=== PATIENT | male | born 1955 | race Caucasian/White ===

== ENCOUNTER 2019-01-08 08:25 | Inpatient (IN) | payer MEDICARE, OTHER ==
[~2019-01-08] VITALS: Ht 172.7 cm; Wt 96.4 kg
[~2019-01-08 08:25] MED LIST: DILT180C66 PO; FOLI-43 PO; IND25C PO; LISI-600 PO; NOR5T PO; PANT40TA39 PO; THI100T PO; TRAZ-91 PO
--- NOTE | 2019-01-08 08:53 | NUR ---
dr. kaplan at bedside.
[2019-01-08 09:55] LABS: BASOPHILS % (AUTO) 0.7 % (0-1); EOSINOPHILS # (AUTO) 0.1 X10'3 (0-0.9); HEMATOCRIT 47.5 % (42.0-52.0); HEMOGLOBIN 16.5 g/dl (14.0-17.9); LYMPHOCYTES # (AUTO) 1.2 X10'3 (1.1-4.8); LYMPHOCYTES % (AUTO) 19.9 % (21-51); MEAN CORPUSCULAR HEMOGLOBIN 38.2 PG (27.0-31.0); MEAN CORPUSCULAR HGB CONC 34.6 g/dL (33.0-36.5); MEAN CORPUSCULAR VOLUME 110.2 FL (78-98); MEAN PLATELET VOLUME 7.4 FL (7.4-10.4); MONOCYTES # (AUTO) 0.5 X10'3 (0-0.9); MONOCYTES % (AUTO) 8.8 % (2-12); NEUTROPHILS # (AUTO) 4.1 X10'3 (1.8-7.7); NEUTROPHILS % (AUTO) 68.6 % (42-75); PLATELET COUNT 181 X10'3 (140-440); RED BLOOD COUNT 4.31 X10'6 (4.70-6.10); RED CELL DISTRIBUTION WIDTH 15.9 % (11.5-14.5)
[2019-01-08 10:09] LABS: ALANINE AMINOTRANSFERASE 18 U/L (12-78); ALBUMIN 2.6 G/DL (3.4-5.0); ALBUMIN/GLOBULIN RATIO 0.6 (1.1-1.5); ALKALINE PHOSPHATASE 199 IU/L (46-116); ANION GAP 7 (8-16); ASPARTATE AMINO TRANSFERASE 53 U/L (10-37); BLOOD UREA NITROGEN 7 MG/DL (7-18); BUN/CREATININE RATIO 6.9 (5.4-32.0); CALCIUM 8.9 MG/DL (8.5-10.1); CHLORIDE 96 MMOL/L (99-107); CREATININE 1.01 MG/DL (0.60-1.10); GLUCOSE 108 MG/DL (70-104); POTASSIUM 3.5 MMOL/L (3.5-5.1); SODIUM 132 MMOL/L (135-145); TOTAL CARBON DIOXIDE 29.5 MMOL/L (24-32); TOTAL PROTEIN 7.1 G/DL (6.4-8.2); eGFR 74 ML/MIN
[2019-01-08 10:12] LABS: ETHANOL < 0.010 GM/DL (0.0-0.010); TROPONIN I < 0.04 NG/ML (0.0-0.05)
[2019-01-08 10:28] LABS: PARTIAL THROMBOPLASTIN TIME 29 SECONDS (22-32); PROTHROMBIN TIME 10.3 SECONDS (9.0-12.0)
[2019-01-08] MEDS ORDERED: heparin 25,000 UNIT/250ml bag 250 ML IV SCH (10:47)
[2019-01-08] MEDS ORDERED: heparin 10,000 units/1 ML INJ IV PRN (10:50)
[2019-01-08] MEDS ORDERED: heparin 10,000 units/1 ML INJ IV ONE ×2 (10:50→10:55)
[2019-01-08] MEDS ORDERED: iohexol 350MG/ML 100ml bottle IV ONE (11:20)
--- NOTE | 2019-01-08 11:20 | NUR ---
patient refused heparin drip at this time,wanted to speak to Dr. rosaura obrien-.
--- NOTE | 2019-01-08 11:30 | NUR ---
urine sent to the lab.
--- NOTE | 2019-01-08 11:30 | NUR ---
patient to ct.
[2019-01-08 11:55] LABS: URINE AMPHETAMINE SCREEN NEGATIVE (Neg); URINE BARBITUATE SCREEN NEGATIVE (Neg); URINE BENZODIAZEPINES SCREEN NEGATIVE (Neg); URINE CANNABINOID SCREEN POSITIVE (Neg); URINE COCAINE SCREEN NEGATIVE (Neg); URINE METHADONE SCREEN NEGATIVE (Neg); URINE OPIATE SCREEN NEGATIVE (Neg); URINE PHENCYCLIDINE SCREEN NEGATIVE (Neg)
--- NOTE | 2019-01-08 11:58 | NUR ---
Dr. Jolley at bedside.
[2019-01-08 12:20] LABS: CLARITY,URINE CLEAR (Clear); COLOR,URINE YELLOW (Yellow); GLUCOSE, URINE NEGATIVE (Neg); KETONES,URINE NEGATIVE (Neg); LEUKOCYTE ESTERASE ,URINE NEGATIVE (Neg); NITRITES, URINE NEGATIVE (Neg); OCCULT BLOOD,URINE NEGATIVE (Neg); PROTEIN,URINE NEGATIVE (Neg); UROBILINOGEN,URINE 0.2 E.U/dL (0.2-1.0)
[2019-01-08] MEDS ORDERED: ESZO3TAB44 PO (12:38)
[2019-01-08] MEDS ORDERED: IBUP-1986 PO (12:38)
[2019-01-08] MEDS ORDERED: GABA-530 PO (12:38)
[2019-01-08 12:41] LABS: UA COLLECTION TYPE CLN CATCH MIDSTREAM
--- NOTE | 2019-01-08 12:45 | NUR ---
patient still refusing heparin,wanted to go ama,sisters at bedside.Dr. Jolley will speak to patient.
--- NOTE | 2019-01-08 13:04 | NUR ---
PER MARIAA IN SS, PT DOES HAVE A HX OF SUICIDE, SHE WANTED STAFF TO BE AWARE. SHE DOES FEEL HE IS VERY DEPRESSED RIGHT NOW BUT NOT A HARM TO SELF AT MOMENT.
[2019-01-08 13:10] LABS: BILIRUBIN,DIRECT 0.3 MG/DL (0-0.3)
--- NOTE | 2019-01-08 13:16 | NUR ---
patient finally agreed to received heparin treatment for dvt and to be admitted.
[2019-01-08] MEDS ORDERED: NICOTINE PATCH TD (13:34)
[2019-01-08] MEDS ORDERED: magnesium 2GM in 50ml NS 50 ML IV PRN (13:55)
[2019-01-08] MEDS ORDERED: mag hydrox/Alum hydrox/simeth 30ml oral suspension PO PRN (13:55)
[2019-01-08] MEDS ORDERED: acetaminophen 325mg tablet PO PRN ×2 (13:55)
[2019-01-08] MEDS ORDERED: diphenhydrAMINE 50 mg/ml inj IV PRN (13:55)
[2019-01-08] MEDS ORDERED: bisacodyl 10mg suppository rectal RC PRN (13:55)
[2019-01-08] MEDS ORDERED: magnesium Cl slow-release 64mg tablet PO PRN (13:55)
[2019-01-08] MEDS ORDERED: morphine 4 MG/ML inj SYRINge IV PRN ×2 (13:55)
[2019-01-08] MEDS: K and/or MAG REPLACEMENT MC SCH (13:55)
[2019-01-08] MEDS ORDERED: HYDROcodone/acetaminophen 5mg/325mg tablet PO PRN (13:55)
[2019-01-08] MEDS ORDERED: HYDROmorphone inj. 0.5 MG/0.5 ML DISP.SYRIN IV PRN (13:55)
[2019-01-08] MEDS ORDERED: diphenhydrAMINE 25mg capsule PO PRN (13:55)
[2019-01-08] MEDS ORDERED: magnesium hydroxide 30ml (MOM) UD suspension PO PRN (13:55)
[2019-01-08] MEDS ORDERED: ondansetron/PF 4mg/2ml inj IV PRN (13:55)
[2019-01-08] MEDS ORDERED: magnesium 4gm in 100ml NS 100 ML IV PRN (13:55)
[2019-01-08] MEDS ORDERED: potassium Cl 40MEQ/NS 500ml 500 ML IV PRN ×2 (13:55)
[2019-01-08] MEDS ORDERED: potassium Cl 20 mEq SR tablet PO PRN (13:55)
[2019-01-08] MEDS: normal saline 1000ml 1,000 ML IV SCH (14:42)
--- NOTE | 2019-01-08 14:44 | NUR ---
SARIAH HERRING/SISTER: [phone].
--- NOTE | 2019-01-08 15:25 | NUR ---
patient asleep at this time,call light and urinal within reach.
--- NOTE | 2019-01-08 16:26 | NUR ---
patient asleep,respirations even,awaiting for in patient assignment.
--- NOTE | 2019-01-08 18:55 | NUR ---
Problems reprioritized. Patient report given, questions answered & plan of care reviewed with Victoria FRAGA.
[2019-01-08] MEDS ORDERED: haloperidol lactate 5mg/ml inj IM PRN (19:00)
[2019-01-08] MEDS ORDERED: haloperidol 5mg tablet PO PRN (19:00)
[2019-01-08] MEDS: nicotine 21mg patch - 24 hr TD SCH (19:45)
[2019-01-08] MEDS: LORazepam 2 mg/ml vial IV PRN ×2 (19:45→23:10)
[2019-01-08 20:00] VITALS: BP 129/81
[2019-01-08] MEDS ORDERED: temazepam 15mg capsule PO PRN (21:00)
--- NOTE | 2019-01-08 22:00 | NUR ---
Lab attempted 2x to draw DVT PTT for heparin drip. Both times no results. Dr. Curiel notified and to hold Heparin gtt for the night. Give now Lovenox 100mg SQ and for oncoming hospitalist to address in the morning.
[2019-01-08] MEDS ORDERED: enoxaparin 100mg/ml syringe SUBCUT ONE (22:05)
[2019-01-08] MEDS: zolpidem 5mg tablet PO SCH (23:10)
[2019-01-09] VITALS: BP 112/71
[2019-01-09] MEDS: normal saline 1000ml 1,000 ML IV SCH (04:03)
[2019-01-09 06:11] LABS: EOSINOPHILS # (AUTO) 0.2 X10'3 (0-0.9); LYMPHOCYTES # (AUTO) 1.3 X10'3 (1.1-4.8); MONOCYTES # (AUTO) 0.4 X10'3 (0-0.9); RED CELL DISTRIBUTION WIDTH 15.9 % (11.5-14.5)
[2019-01-09 06:14] LABS: BASOPHILS % (AUTO) 1.2 % (0-1); EOSINOPHILS % (AUTO) 4.4 % (0-6); HEMOGLOBIN 14.7 g/dl (14.0-17.9); LYMPHOCYTES % (AUTO) 34.1 % (21-51); MEAN CORPUSCULAR HEMOGLOBIN 37.9 PG (27.0-31.0); MEAN CORPUSCULAR HGB CONC 34.2 g/dL (33.0-36.5); MEAN CORPUSCULAR VOLUME 110.7 FL (78-98); MEAN PLATELET VOLUME 7.2 FL (7.4-10.4); NEUTROPHILS % (AUTO) 50.3 % (42-75); PLATELET COUNT 129 X10'3 (140-440); RED BLOOD COUNT 3.88 X10'6 (4.70-6.10)
[2019-01-09 06:30] LABS: ALANINE AMINOTRANSFERASE 15 U/L (12-78); ALBUMIN/GLOBULIN RATIO 0.5 (1.1-1.5); ALKALINE PHOSPHATASE 155 IU/L (46-116); ANION GAP 8 (8-16); ASPARTATE AMINO TRANSFERASE 44 U/L (10-37); BILIRUBIN,TOTAL 0.9 MG/DL (0.1-1.0); BLOOD UREA NITROGEN 6 MG/DL (7-18); BUN/CREATININE RATIO 7.6 (5.4-32.0); CHLORIDE 100 MMOL/L (99-107); CHOL/HDL RATIO 2.1 (0.00-4.99); CHOLESTEROL 125 MG/DL (0-200); CREATININE 0.79 MG/DL (0.60-1.10); GLUCOSE 95 MG/DL (70-104); HDL CHOLESTEROL 59 MG/DL (35-60); LDL CHOLESTEROL 61 MG/DL (50-100); MAGNESIUM 1.7 MG/DL (1.5-2.4); PHOSPHORUS 3.2 MG/DL (2.3-4.5); POTASSIUM 3.3 MMOL/L (3.5-5.1); SODIUM 131 MMOL/L (135-145); TOTAL CARBON DIOXIDE 22.7 MMOL/L (24-32); TOTAL PROTEIN 5.7 G/DL (6.4-8.2); TRIGLYCERIDES 71 MG/DL (20-135); eGFR > 90 ML/MIN
[2019-01-09 07:10] VITALS: BP 128/85
[2019-01-09 07:12] LABS: PLATELET ESTIMATE DECREASED
[2019-01-09] MEDS: potassium Cl 20 mEq SR tablet PO PRN ×2 (07:33→12:51)
[2019-01-09] MEDS: K and/or MAG REPLACEMENT MC SCH (07:33)
[2019-01-09] MEDS ORDERED: gabapentin 100mg capsule PO SCH (08:00)
[2019-01-09] MEDS ORDERED: nicotine 14mg patch - 24hr TD SCH (08:00)
[2019-01-09] MEDS ORDERED: non-formulary drug (Eszopiclone 1 TAB) PO SCH (08:00)
[2019-01-09] MEDS ORDERED: NICOTINE 4 MG TD SCH (08:00)
[2019-01-09 11:52] VITALS: BP 132/88
[2019-01-09] MEDS: LORazepam 2 mg/ml vial IV PRN (15:16)
--- NOTE | 2019-01-09 18:12 | NUR ---
Problems reprioritized. Patient report given, questions answered & plan of care reviewed with PHILLY Kessler.
[2019-01-09 20:00] VITALS: BP 134/92
[2019-01-09] MEDS: nicotine 21mg patch - 24 hr TD SCH (22:13)
[2019-01-10] MEDS: zolpidem 5mg tablet PO SCH ×3 (01:27→23:06)
[2019-01-10] MEDS: HYDROmorphone 1 mg/ml syringe IV PRN ×3 (06:38→23:06)
--- NOTE | 2019-01-10 06:59 | NUR ---
Patient in room ADE 344. I have received report from BETY FRAGA and had the opportunity to ask questions and assume patient care.
[2019-01-10 07:00] VITALS: BP 140/87
[2019-01-10] MEDS: nicotine 21mg patch - 24 hr TD SCH (07:31)
[2019-01-10 11:00] VITALS: BP 112/63
[2019-01-10] MEDS: HYDROcodone/acetaminophen 10/325mg tab PO PRN (16:29)
[2019-01-10] MEDS: LORazepam 2 mg/ml vial IV PRN (16:29)
--- NOTE | 2019-01-10 18:50 | NUR ---
Problems reprioritized. Patient report given, questions answered & plan of care reviewed with BRYANT FRAGA .
[2019-01-10 19:00] VITALS: BP 127/76
[2019-01-10] MEDS ORDERED: LORazepam 1 MG tablet PO PRN (19:00)
[2019-01-10] MEDS ORDERED: LORazepam 2 mg/ml vial IV PRN (19:00)
[2019-01-11] VITALS: BP 129/83
--- NOTE | 2019-01-11 06:01 | NUR ---
Problems reprioritized. Patient report given, questions answered & plan of care reviewed with Jennie FRAGA. Addendum: 01/11/19 at 0602 by Marta Hernandez RN Amended: Links added.
--- NOTE | 2019-01-11 06:18 | NUR ---
Patient in room ADE 344. I have received report from jac FRAGA and had the opportunity to ask questions and assume patient care.
[2019-01-11 07:00] VITALS: BP 124/86
[2019-01-11] MEDS: nicotine 21mg patch - 24 hr TD SCH (10:15)
[2019-01-11] MEDS: HYDROcodone/acetaminophen 10/325mg tab PO PRN (10:17)
[2019-01-11] MEDS ORDERED: NICO-687 TD (11:22)
--- NOTE | 2019-01-11 13:39 | NUR ---
patient sen by Dr Ocnonell and family independence case manager is for transport home and hospice care. see block and case maker note. Sister present. Patient appears stable for transport. Transported home via [facility] wit sister present 1330hrs.
[2019-01-12] MEDS ORDERED: LORazepam 2 mg/ml vial IV PRN (19:00)
[2019-01-12] MEDS ORDERED: LORazepam 1 MG tablet PO PRN (19:00)
== END 2019-01-11 13:34 | disposition hospice, home (50) | DRG 299 ==
LOC: ER 08:27 → ED HOLD 13:53 → SUR 3N 17:42
PROVIDERS: ADMIT Family Medicine; ATTEND Family Medicine
PROC: B32T1ZZ Computerized Tomography (CT Scan) of Left Pulmonary Artery using Low Osmolar Contrast (ICD-10-PCS; principal; 2019-01-08)
PROC: B32S1ZZ Computerized Tomography (CT Scan) of Right Pulmonary Artery using Low Osmolar Contrast (ICD-10-PCS; 2019-01-08)
DX: I82.413 Acute embolism and thrombosis of femoral vein, bilateral (principal); I26.99 Other pulmonary embolism without acute cor pulmonale; E87.1 Hypo-osmolality and hyponatremia; I82.441 Acute embolism and thrombosis of right tibial vein; I82.492 Acute embolism and thrombosis of other specified deep vein of left lower extremity; I82.512 Chronic embolism and thrombosis of left femoral vein; I82.592 Chronic embolism and thrombosis of other specified deep vein of left lower extremity; I82.433 Acute embolism and thrombosis of popliteal vein, bilateral; F10.20 Alcohol dependence, uncomplicated; R91.1 Solitary pulmonary nodule; J44.9 Chronic obstructive pulmonary disease, unspecified; K70.30 Alcoholic cirrhosis of liver without ascites; K76.0 Fatty (change of) liver, not elsewhere classified; Z60.2 Problems related to living alone; R29.6 Repeated falls; G62.9 Polyneuropathy, unspecified; M10.9 Gout, unspecified; M19.90 Unspecified osteoarthritis, unspecified site; Z66 Do not resuscitate; Z91.19 Patient's noncompliance with other medical treatment and regimen; Z99.3 Dependence on wheelchair; Z56.0 Unemployment, unspecified; Z74.01 Bed confinement status; Z88.0 Allergy status to penicillin; Z79.899 Other long term (current) drug therapy; Z79.01 Long term (current) use of anticoagulants; Z85.820 Personal history of malignant melanoma of skin; Z86.73 Personal history of transient ischemic attack (TIA), and cerebral infarction without residual deficits; Z87.891 Personal history of nicotine dependence; Z80.1 Family history of malignant neoplasm of trachea, bronchus and lung; Z80.3 Family history of malignant neoplasm of breast; Z80.42 Family history of malignant neoplasm of prostate
CPT/HCPCS: 36415; 70450; 71045; 71275; 80053; 80061; 80305; 80320; 81003; 82140; 82248; 82948; 83036; 83735; 84100; 84484; 85025; 85610; 85730; 87070; 93005; 93306; 93970; 96365; 96376; 99285; G0378; J1170; J1644; J1650; J2060; J2270; J2405; J7030; Q9967